=== PATIENT | female | born 1955 | race Hispanic/Latino ===

== ENCOUNTER 2017-04-15 03:20 | Inpatient (IN) | payer SELFPAY ==
[2017-04-15] MEDS ORDERED: Vancomycin HCl 1.5 GM in Sodium Chloride 0.9% 250 ML 300 ML IVPB SCH (05:00)
[2017-04-15] MEDS ORDERED: Gentamicin Sulfate 300 MG in Sodium Chloride 0.9% 100 ML IVPB SCH (05:00)
[2017-04-15] MEDS ORDERED: Acetaminophen 325 MG TAB PO PRN (07:00)
[2017-04-15] MEDS ORDERED: Ondansetron HCl/PF 4 MG/2 ML Vial IVP PRN (07:00)
--- NOTE | 2017-04-15 07:12 | PDOC.FPRHP ---
- History of Present Illness Chief Complaint: Feels bad and worried about a stroke History of Present Illness: 61 yo F with hx of HTN, DM, and CVA with persistent left sided weakness presented to [place] ER with concern of "feeling bad and maybe had a stroke." She states that she started to feel bad and have a left frontal headache sometime in the afternoon of 04/14. She had associated left sided facial weakness , drooling, and left UE weakness. It was at this point that she was concerned that she may be stroking. She then called her ex who took her out to eat so that she might feel better. After returning home, her worry of stroke persisted and she decided to come into the ER. She has an additional hx of DM, for which she takes metformin and glipizide and should be on insulin, however is not. This patient is a poor historian and typically answers questions tangential to what was asked. ED Course: In the ED she had a head CT that was negative. Additionally, she had a UA that was concerning for UTI. She was given a gram of Rocpehin and sent to this facility dt concern of TIA. - Allergies/Adverse Reactions Allergies Allergy/AdvReac Type Severity Reaction Status Date / Time codeine Allergy Verified 04/15/17 04:47 iodine Allergy Verified 04/15/17 04:48 - Home Medications Medication Instructions Recorded Confirmed Type Amlodipine [Norvasc] 1 tab PO DAILY 04/15/17 04/15/17 History Aspirin [Ecotrin Low Strength] 1 tab PO DAILY 04/15/17 04/15/17 History glipiZIDE [Glipizide] 2 tab PO DAILY 04/15/17 04/15/17 History metFORMIN [Glucophage] 1 tab PO BID 04/15/17 04/15/17 History - History PMHx: CVA HTN DM2 Asthma PSHx: Partial hysterectomy 2/2 cervical cancer FHx: Social: - Review of Systems General: denies: fever/chills, weight/appetite/sleep changes Eyes: denies: eye pain, vision changes ENT: denies: nasal congestion Respiratory: denies: cough, congestion, shortness of breath Cardiovascular: denies: chest pain, palpitation Gastrointestinal: denies: nausea, vomiting Genitourinary: denies: incontinence, dysuria Skin: denies: rashes, lesions Musculoskeletal: denies: pain, tenderness, stiffness Neurological: reports: numbness (Left face), weakness (Left arm), other (left frontal headache) Psychological: denies: anxiety, depression - Vital signs BP: 173/93 HR: 82 RR: 20 Tmax: 97.9 Pox: 96% on RA Wt: 93 kg - Physical Exam Constitutional: NAD, awake, alert and oriented, well developed HEENT: normocephalic and atraumatic, PERRLA, EOMI Neck: supple, FROM Chest: no-tender to palpation Heart: RRR, normal S1/S2, no murmurs/rubs/gallops Lungs: CTAB, no respiratory distress, no wheezing Abdomen: soft, non-tender, bowel sounds present Musculoskeletal: normal structure, normal tone Neurological: CN II-XII intact, other (L UE electric motor rebuilder strength, wrist extension, arm flexion all 3/5) Skin: no rash/lesions, good turgor Heme/Lymphatic: no unusual bruising or bleeding Psychiatric: normal mood and affect, intact recent and remote memory FMR H&P: Results - Labs Lab results: Per [facility] [place] records Lactic Aci d2.3 UA Nit pos, LE post, WBC 20-50, Jarek many, squam 0-5 CBC Hb 14.3, Hct 41, WBC 7.6, Plt 221 FMR H&P: A/P - Problem List (1) TIA (transient ischemic attack) Current Visit: Yes Status: Suspected Priority: High (2) HTN (hypertension) Current Visit: Yes Status: Chronic Priority: Medium Code(s): I10 - ESSENTIAL (PRIMARY) HYPERTENSION Qualifiers: Hypertension type: essential hypertension Qualified Code(s): I10 - Essential (primary) hypertension (3) DM2 (diabetes mellitus, type 2) Current Visit: Yes Status: Chronic Priority: Medium (4) UTI (urinary tract infection) Current Visit: Yes Status: Acute Priority: High Qualifiers: Urinary tract infection type: acute cystitis Hematuria presence: without hematuria Qualified Code(s): N30.00 - Acute cystitis without hematuria - Plan Possible TIA - CT neg, however in light of hx will order MRI today - Carotid doppler - Continue ASA, pt unable to tolerate statin per hx - Admit to Stroke, monitor NIH UTI - Continue Rocephin - Call [place] for Cx resutls - This is likely 2/2 elevated BG DM2 - continue home meds - SSI - BG ACHS - A1c - Low carb diet HTN - continue home meds, pt states that at home she is typically controlled and reports BP 120s/80s Asthma - possible dx. Pt did not mention it and it is not in her meds from home, however it was in her hx from [place] ED - monitor O2 sats. PRN albuterol DVT PPx - SCD Diet - Heart healthy, low carb Disposition/LOS: Pt is stable. Continue to treat UTI and work up possible TIA/CVA. Likely discharge in 24 hours. FMR H&P: Upper Level - Pertinent history 61yo F with PMHx of T2DM, HTN, hx of CVA (2017) and hx of AAA who presented to [place] ED due to LT sided facial numbness, drooling, difficulty finding words and not feeling well. Transferred here for further evaluation. Patient reports she had sudden onset of LT frontal CHOWDHURY, LT facial numbness and drooling around 3pm. Called her ex- at that time and decided to go out and eat dinner as she had just not been feeling well for the past 2wks. Went home and continued to have symptoms and thus presented to ED. States symptoms resolved when she got medicine at the ED. Only received insulin and rocephin at OSH ED. Patient is a very poor historian. Reports 2wk hx of increased urinary frequency and urinary pressure. Denies any fevers, chills, N/V, diarrhea. Of note, patient has a hx of CVA last year with LT sided deficits. Continues to have residual LT UE/LE weakness but currently states her LUE feels stiffer than her baseline. - Pertinent findings Gen: NAD HEENT: PERRLA Heart: S1, S2, RRR Lungs: CTAB Abd: soft, +suprapubic tendnerness, BS+ Neuro: CN2-12 intact, RUE/RLE 5/5 strength, LUE/LLE 3/5 strength, no drift, sensation intact, normal FNF - Plan Date/Time: 04/15/17 0705 Deepa Pride, have evaluated this patient and agree with findings/ plan as outlined by fall intern resident. Pertinent changes/additions are listed here. 1. TIA vs. CVA: Admit to stroke. Cont ASA. Previously on statin but stopped because it shut down her organs. Obtain FLP, A1c, carotid dopplers and MRI. Allow for permissive HTN for 24hrs. ABCD2 score of 6 indicative of high 2d stroke. 2. Elevated lactate: Patient with elevated lactate of 2.3 at OSH and given 1L bolus at that time. Cont IVF and repeat lactate. 3. UTI: Given Rocephin at OSH. Cont. Urine and bl cxs obtained at OSH. 4. Hyperglycemia: likely 2/2 uncontrolled T2DM. Given insulin at OSH. Obtain A1c. Currently on metformin and glipizide though not compliant. She recently got meds filled a few days ago, but prior had not been taking them for the past 2wks because of financial costs. Cont home regimen. 5. HTN: hold home amlodipine. 6. Hx of CVA with LT sided residual deficits (2017) 7. Hx of AAA 8. Diet: HH 9. PPx: SCDs 10. Code Status: Full Attending Addendum - Attending Addendum Date/Time: 04/15/17 1221 I personally evaluated the patient and discussed the management with Dr. Smyth and Dr. Acevedo. I agree with the History, Examination, Assessment and Plan documented above with any addition or exceptions noted below. Patient with symptoms of TIA, now resolved with exception of headache and malaise. Patient notes dysarthria, unilateral weakness on the left side (worse than residual hemiplegia from previous stroke), and left-sided facial droop that are all now resolved. ABCD2 score 6, will need to stay overnight for observation. MRI, carotid dopplar results pending. Consult neurology and start ASA/Plavix DAPT for 21 days followed by Plavix treatment unless another treatment course is preferred by neurology for secondary stroke prevention. Does not tolerate statin. In addition will treat UTI with Rocephin and await culture results.
[2017-04-15] MEDS ORDERED: Dextrose 50% Abboject 50 ML SYRINGE SLOW IVP PRN (07:14)
[2017-04-15] MEDS ORDERED: Dextrose 5% in Water 1,000 ML IV PRN (07:14)
[2017-04-15] MEDS ORDERED: HumaLOG 300 UNITS/3 ML VIAL SC PRN (07:14)
[2017-04-15 07:46] VITALS: BMI 34.6
[2017-04-15 08:13] LABS: Lactic Acid 1.3 mmol/L (0.5-2.2)
[2017-04-15] MEDS ORDERED: glipiZIDE 5 MG TAB PO SCH (08:15)
--- NOTE | 2017-04-15 09:06 | ULT ---
CAROTID ULTRASOUND WITH AL SCALE AND DOPPLER DUPLEX COLOR FLOW IMAGING SPECTRAL ANALYSIS PERFORMED: CLINICAL INDICATION: TIA. FINDINGS: There is mild intimal thickening atherosclerotic calcification of the carotid arteries. PEAK SYSTOLIC VELOCITY (CM/S): Right CCA 75 Left CCA 93 Right ICA 86 Left ICA 59 There is antegrade flow within the visualized bilateral vertebral arteries. IMPRESSION: 1. No hemodynamically significant stenosis of the right internal carotid artery. 2. No hemodynamically significant stenosis of the left internal carotid artery. POS: CIRILO
[2017-04-15] MEDS: Aspirin 325 MG TAB PO SCH (09:52)
[2017-04-15] MEDS: metFORMIN 500 MG TAB PO SCH ×2 (09:52→17:40)
[2017-04-15] MEDS: Sodium Chloride 0.9% 1,000 ML IV SCH ×2 (09:52→18:18)
--- NOTE | 2017-04-15 16:42 | MRI ---
BRAIN MRI NONCONTRAST 04/15/17 CLINICAL HISTORY: TIA, CVA with left sided weakness. FINDINGS: There is no evidence of acute territorial infarction, mass effect or midline shift. Ventricular syste m is within normal limits of size. There is mild chronic microvascular ischemic disease. No significa nt intracranial hemorrhagic susceptibility. Imaged skull base flow voids are patent. There is opacifi cation of the imaged maxillary sinuses. Partially empty sella is present. IMPRESSION: 1. No acute territorial infarction or mass effect. 2. Mild chronic microvascular ischemic disease. POS: CIRILO
[2017-04-15] MEDS ORDERED: cefTRIAXone\\ROCEPHIN 1 GM, Syringe 0.4 ML in Sterile Water 9.6 ML SLOW IVP SCH (20:00)
[2017-04-16 05:43] LABS: #Eosinphils 0.2 thou/uL (0.0-0.7); #Lymphocytes 1.6 thou/uL (1.20-3.40); #Monocytes 0.5 thou/uL (0.11-0.59); #Neutrophils 4.5 thou/uL (1.40-6.50); %Basophils 0.2 % (0.0-1.0); %Eosinophils 2.8 % (0.0-10.0); %Lymphocytes 23.4 % (21.0-51.0); %Monocytes 7.1 % (0.0-10.0); %Neutrophils 66.5 % (42.0-75.0); Hemoglobin 13.6 g/dL (12.0-16.0); Mean Corpuscular HGB CONC 33.9 g/dL (32.0-36.0); Mean Corpuscular Hemoglobin 28.4 pg (27.0-31.0); Mean Platelet Volume 7.5 fL (7.4-10.4); Platelet Count 201 thou/uL (130-400); RBC Distribution Width 13.7 % (11.5-14.5); Red Blood Cell (RBC) Count 4.78 mill/uL (4.20-5.40); White Blood Cell (WBC) Count 6.8 thou/uL (4.8-10.8)
[2017-04-16 05:44] LABS: Hemoglobin A1c 7.7 % (4.0-6.0)
[2017-04-16 06:07] LABS: Anion Gap 12 mmol/L (10-20); BUN (Urea Nitrogen) 6 mg/dL (9.8-20.1); Calc. Creatinine Clearance 140 mL/min (70-130); Calcium 9.3 mg/dL (7.8-10.44); Carbon Dioxide 25 mmol/L (23-31); Cardiac Risk 6.2 (Less than 4.5); Chloride 102 mmol/L (98-107); Cholesterol 210 mg/dl (< 200 Desired); Estimated GFR-MDRD Greater than 90; Glucose 219 mg/dL (80-115); HDL Cholesterol 34 mg/dL (>60 Neg Risk); LDL Cholesterol, Calculated 142 mg/dL; Potassium 3.6 mmol/L (3.5-5.1); Sodium 135 mmol/L (136-145); Triglycerides 168 mg/dL (Less than 150)
[2017-04-16] MEDS ORDERED: glipiZIDE 5 MG TAB PO SCH (07:30)
[2017-04-16] MEDS: metFORMIN 500 MG TAB PO SCH (08:45)
[2017-04-16] MEDS: Aspirin 325 MG TAB PO SCH (08:45)
--- NOTE | 2017-04-16 08:49 | PDOC.FM ---
- Subjective Subjective: Patient reports she is feeling much better this morning. She states she is back to her baseline walking. She reports feelings like her confusion is resolved. She would like to go home. - Objective Vital Signs & Weight: Vital Signs (12 hours) Temp Pulse Resp BP Pulse Ox 04/16/17 08:00 98.3 F 92 18 04/16/17 07:18 98.3 F 92 18 141/90 H 97 04/16/17 04:00 97.5 F L 80 18 165/79 H 94 L Weight Weight 97.296 kg I&O: 04/15/17 04/16/17 04/17/17 06:59 06:59 06:59 Intake Total 0 Balance 0 Result Diagrams: 04/16/17 05:16 04/16/17 05:16 <Axel Acevedo - Last Filed: 04/16/17 08:47> - Objective Vital Signs & Weight: Weight Weight 97.296 kg I&O: 04/16/17 04/17/17 04/18/17 06:59 06:59 06:59 Intake Total 0 Balance 0 Result Diagrams: 04/16/17 05:16 04/16/17 05:16 <Catie Caceres - Last Filed: 04/17/17 09:18> Phys Exam - Physical Examination HEENT: PERRLA, moist MMs Neck: no nodes, full ROM Respiratory: no wheezing, clear to auscultation bilateral Cardiovascular: RRR, no significant murmur Gastrointestinal: soft, non-tender Musculoskeletal: no edema, pulses present Neurological: non-focal, moves all 4 limbs Psychiatric: normal affect, A&O x 3 Skin: no rash, normal turgor, cap refill <2 seconds <Axel Acevedo - Last Filed: 04/16/17 08:47> Dx/Plan - Plan Plan: Possible TIA - CT neg, however in light of hx - Brain MRI shows chronic ischemis changes - Carotid doppler negative - Continue ASA - add rosuvastatin, plavix UTI - Continue Rocephin - Called [place] for Cx resutls - This is likely 2/2 elevated BG DM2 - continue home meds - SSI - BG ACHS - A1c - Low carb diet HTN - continue home meds, pt states that at home she is typically controlled and reports BP 120s/80s Asthma - monitor O2 sats. PRN albuterol DVT PPx - SCD Diet - Heart healthy, low carb Dispo: d/c today <Axel Acevedo - Last Filed: 04/16/17 08:47> (1) TIA (transient ischemic attack) Status: Suspected (2) HTN (hypertension) Code(s): I10 - ESSENTIAL (PRIMARY) HYPERTENSION Status: Chronic Qualifiers: Hypertension type: essential hypertension Qualified Code(s): I10 - Essential (primary) hypertension (3) DM2 (diabetes mellitus, type 2) Status: Chronic (4) UTI (urinary tract infection) Status: Acute Qualifiers: Urinary tract infection type: acute cystitis Hematuria presence: without hematuria Qualified Code(s): N30.00 - Acute cystitis without hematuria <Catie Caceres - Last Filed: 04/17/17 09:18> Attending Addendum - Attending Addendum Date/Time: 04/17/17 0917 I personally evaluated the patient and discussed the management with Dr. Acevedo on 04/16/17. I agree with the History, Examination, Assessment and Plan documented above with any addition or exceptions noted below. Patient back to baseline. Secondary stroke prevention initiated with ASA 81 mg and Plavix 75 mg for 90 days followed by either ASA or Plavix only given patient 's risk factors for bleeding. Extensive counseling done by myself and Dr. Acevedo on lifestyle changes that will decrease her future stroke risk, dementia onset, diabetes, etc... >30 minutes spent by myself on discharge. <Catie Caceres - Last Filed: 04/17/17 09:18>
[2017-04-16] MEDS ORDERED: Clopidogrel Bisulfate 75 MG TAB PO SCH (09:00)
[2017-04-16 11:56] VITALS: BP 158/95; TEMP 97.7
[2017-04-16] MEDS ORDERED: cefTRIAXone\\ROCEPHIN 1 GM in Sodium Chloride 0.9% 100 ML IVPB SCH (20:00)
[2017-04-16] MEDS ORDERED: Rosuvastatin 20 MG TAB PO SCH (21:00)
--- NOTE | 2017-04-17 00:19 | DIS-2 ---
DATE OF ADMISSION: 04/15/2017 DATE OF DISCHARGE: 04/16/2017 RESIDENT: Dr. Axel Acevedo. ADMITTING ATTENDING: Dr. Brenton Hastings. DISCHARGE ATTENDING: Dr. Catie Caceres. CONSULTATIONS: Neurology. PROCEDURES: None. PRIMARY DIAGNOSIS: Transient ischemic attack. SECONDARY DIAGNOSES: Urinary tract infection, diabetes mellitus type 2, hypertension, asthma. DISCHARGE MEDICATIONS: Aspirin 81 mg, amoxicillin 500 mg b.i.d. for 5 days, Plavix 75 mg daily for 9 0 days, rosuvastatin 20 mg, glipizide 10 mg daily. DISCONTINUED MEDICATIONS: None. HISTORY OF PRESENT ILLNESS AND HOSPITAL COURSE: A 61-year-old female with history of hypertension, d iabetes mellitus, and cerebrovascular accident with persistent left-sided weakness, presented to [facility] ER "feeling bad and maybe had a stroke." She states that she started to feel bad sometimes befo re noon that day and then called her ex- to go out for lunch. She then decided to go into the ED for evaluation, because she noticed drooling on the left side. During the course of hospitalization, the patient had a CT head which was read as negative. She also had a brain MRI, which showed chronic ischemic changes. She was treated for UTI based on her sympto ms with Rocephin while in the hospital and discharged home on amoxicillin. She is discharged home wi stroke optimization medications. She should only be on the Plavix for 90 days following this hosp italization in order to decrease bleeding risk. DISPOSITION: Stable. DISCHARGE INSTRUCTIONS: 1. Location: Home. 2. Diet: Regular. 3. Activity: As tolerated. 4. Followup: Follow up with PCP within 7 days.
== END 2017-04-16 14:21 | disposition home or self-care (01) | DRG 69 ==
LOC: ERS 03:20 → 2SE 05:15
PROVIDERS: ADMIT Emergency Medicine; ATTEND Emergency Medicine
DX: G45.9 Transient cerebral ischemic attack, unspecified (principal); E11.65 Type 2 diabetes mellitus with hyperglycemia; I69.354 Hemiplegia and hemiparesis following cerebral infarction affecting left non-dominant side; N39.0 Urinary tract infection, site not specified; I10 Essential (primary) hypertension; J45.909 Unspecified asthma, uncomplicated
CPT/HCPCS: 36415; 36416; 70551; 80048; 80061; 83036; 83605; 85025; 93880; 96365; A4216; G8978-GP-CJ; G8979-GP-CJ; G8980-GP-CJ; G8987-GO-CI; G8988-GO-CI; J0696; J1580; J3370; J7050